=== PATIENT | female | born 1955 | race Asian ===

== ENCOUNTER 2017-01-04 18:41 | Emergency (ER) | payer OTHER ==
[~2017-01-04] VITALS: Ht 142.2 cm; Wt 70.2 kg
[~2017-01-04 18:41] MED LIST: CELEBREX100 MG PO; CLARITIN10 M3 PO; ZANTAC150 MG PO
[2017-01-04 20:00] LABS: HEMATOCRIT 38.5 % (36.0-46.0); MCH 29.7 PG (29.0-34.0); MCHC 33.2 G/DL (30.0-36.0); MCV 89.3 FL (83-99); MEAN PLAT.VOLUME 9.5 uM^3 (9.5-12.4); PLATELET COUNT 330 K/uL (156-360); RBC DIS.WIDTH-CV 12.9 % (11.8-14.6); RBC DIS.WIDTH-SD 42.5 % (39-53); RED BLOOD COUNT 4.31 M/uL (3.80-5.20); WHITE BLOOD COUNT 9.3 K/uL (4.1-10.2)
[2017-01-04 20:17] LABS: CHLORIDE 106 mEq/L (99-109); POTASSIUM 3.5 mEq/L (3.7-5.4); SODIUM 142 mEq/L (136-147)
[2017-01-04 20:19] LABS: GLUCOSE 98 mg/dL (70-99)
[2017-01-04 20:20] LABS: ANION GAP 10 MEQ/L (2-14)
[2017-01-04 20:23] LABS: GFR ESTIMATE (CALCULATED) > 59 mL/min/
[2017-01-04 20:24] LABS: UREA NITROGEN (BUN) 21 mg/dL (9-23)
[2017-01-04] MEDS ORDERED: ZITHROMAX Z-PA250 MG PO (23:49)
[2017-01-05 00:07] VITALS: BP 135/75
== END 2017-01-05 00:07 | disposition home or self-care (01) ==
LOC: EME 18:41
PROVIDERS: Physician Assistant
DX: R60.0 Localized edema (principal); J18.9 Pneumonia, unspecified organism; M25.571 Pain in right ankle and joints of right foot; M25.572 Pain in left ankle and joints of left foot
CPT/HCPCS: 71020; 80048; 83880; 85027; 93970; 99281; 99284